=== PATIENT | male | born 1955 | race African-American/Black ===

== ENCOUNTER 2023-02-08 08:45 | Inpatient (IN) | payer SELFPAY ==
[2023-02-08] MEDS ORDERED: Ondansetron PF 4 MG/2 ML Vial ONE ×2 (09:08→13:36)
[2023-02-08] MEDS ORDERED: Ketorolac Tromethamine 30 MG/ML VIAL ONE (09:08)
[2023-02-08 09:17] LABS: Hematocrit 47.1 % (42.0-52.0); Hemoglobin 15.3 g/dL (14.0-18.0); Mean Corpuscular HGB CONC 32.5 g/dL (32.0-36.0); Mean Corpuscular Volume 95.5 fl (78.0-98.0); Mean Platelet Volume 8.6 fL (7.4-10.4); Platelet Count 385 10x3/uL (130-400); RBC Distribution Width 12.3 % (11.5-14.5); Red Blood Cell (RBC) Count 4.93 mill/uL (4.70-6.10); White Blood Cell (WBC) Count 3.9 10x3/uL (4.8-10.8)
[2023-02-08 09:24] LABS: Bacteria/HPF None Seen HPF (None Seen); Bilirubin Negative (Negative); Blood, Urine 1+ (Negative); CAUTI Indications for Culture Pelvic or flank pain; Clarity Turbid (Clear); Glucose, Urine (Dipstick) Normal (Negative); Ketone, Urine 10 mg/dL (Negative); Leukocyte Negative Leu/uL (Negative); Nitrite Negative (Negative); Protein, Urine (Dipstick) 50 mg/dL (Neg-Trace); RBC/HPF 0-3 HPF (0-3); Specific Gravity, Urine 1.027 (1.002-1.036); Squamous Epithelial 0-3 HPF (0-3); Urobilinogen Normal mg/dL (Less than 2); WBC/HPF 0-3 HPF (0-3)
[2023-02-08 09:26] LABS: Urine Culture Reflex No No
[2023-02-08 09:32] LABS: Delete Auto Diff?? YES; Manual Diff?? YES
[2023-02-08] MEDS ORDERED: Piperacillin/Tazobactam 4.5 GM VIAL ONE (09:42)
[2023-02-08] MEDS ORDERED: Sodium Chloride 0.9% 100 ML ONE (09:42)
[2023-02-08 09:43] LABS: ALT (SGPT) 16 U/L (8-55); AST (SGOT) 29 U/L (5-34); Albumin 4.6 g/dL (3.4-4.8); Alkaline Phosphatase 77 U/L (40-110); Anion Gap 21 mmol/L (10-20); BUN (Urea Nitrogen) 28 mg/dL (8.4-25.7); Bilirubin, Total 1.4 mg/dL (0.2-1.2); Calc. Creatinine Clearance 0 mL/min (70-130); Calcium 9.6 mg/dL (7.8-10.44); Carbon Dioxide 24 mmol/L (23-31); Chloride 103 mmol/L (98-107); Estimated GFR 55; Globulin 3.6 g/dL (2.4-3.5); Glucose 189 mg/dL (80-115); Lipase 200 U/L (8-78); Potassium 4.5 mmol/L (3.5-5.1); Protein, Total 8.2 g/dL (5.8-8.1); Sodium 143 mmol/L (136-145)
[2023-02-08 10:08] LABS: Anisocytosis MARKED = >30 cells HPF (0-5); Band 37 % (5-11); Burr Cells MODERATE= 6-15 cells HPF (0-1); CellaVision Operator ID LAB.CMB; Lymphocytes 16 % (21-51); Macrocytosis MODERATE=16-30 cells HPF (0-5); Monocytes 6 % (0-10); Neutrophil 41 % (42-75); Ovalocytes SLIGHT = 2-5 cells HPF (0-1); Platelet Adequacy Comment Platelets Normal; Poikilocytosis SLIGHT = 6-15 cells HPF (0-5); Reactive Lymphocytes 1 % (0-10); Total Cell Count 103
[2023-02-08 12:25] LABS: Lactic Acid 3.9 mmol/L (0.5-2.2)
[2023-02-08] MEDS ORDERED: Ipratropium/Albuterol 3 ML NEB NEB PRN (12:33)
[2023-02-08] MEDS ORDERED: TETANUS, DIPHTHERIA TOX,ADULT (TDVAX) 0.5 ML VIAL IM ONE (12:33)
[2023-02-08] MEDS ORDERED: Ondansetron PF 4 MG/2 ML Vial IVP PRN ×2 (12:33→14:56)
[2023-02-08] MEDS ORDERED: Morphine 2 MG/ML VIAL SLOW IVP PRN (12:33)
[2023-02-08] MEDS ORDERED: Sodium Chloride 0.9% 1,000 ML IV SCH ×2 (12:45→18:45)
[2023-02-08] MEDS ORDERED: Acetaminophen 500 MG TAB PO SCH ×2 (13:15→18:00)
[2023-02-08] MEDS ORDERED: fentaNYL 50 mcg/mL 1 mL Vial ONE (13:17)
[2023-02-08] MEDS ORDERED: fentaNYL PF 100 MCG/2 ML SYRINGE ONE (13:17)
[2023-02-08] MEDS ORDERED: SUGAMMADEX SODIUM 200 MG/2 ML VIAL ONE (13:22)
[2023-02-08] MEDS ORDERED: Dexamethasone 20 MG/5 ML VIAL ONE (13:36)
[2023-02-08] MEDS ORDERED: Rocuronium Bromide 10 MG/ML (10ML VIAL) ONE (13:36)
[2023-02-08] MEDS ORDERED: Succinylcholine 200 MG/10 ml SYRINGE FS ONE (13:36)
[2023-02-08] MEDS ORDERED: PROPOFOL 200 MG/20 ML VIAL ONE (13:36)
[2023-02-08] MEDS ORDERED: Iopamidol-370 76% 500 ML MDV (1 ML CHARGE) ONE (13:54)
[2023-02-08] MEDS ORDERED: diphenhydrAMINE 50 MG/ML VIAL IM PRN (14:56)
[2023-02-08] MEDS ORDERED: Naloxone HCl 0.4 mg/ml Vial IV PRN (14:56)
[2023-02-08] MEDS ORDERED: diphenhydrAMINE 50 MG/ML VIAL IVP PRN (14:56)
[2023-02-08] MEDS ORDERED: Ondansetron HCl/PF 4 MG/2 ML Vial IVP PRN (14:56)
[2023-02-08] MEDS ORDERED: HYDROmorphone 2 MG/ML VIAL SLOW IVP PRN (14:56)
[2023-02-08] MEDS ORDERED: HYDROmorphone 10 mg/100 ml CADD IVPB PRN (14:56)
[2023-02-08] MEDS ORDERED: diphenhydrAMINE 25 MG CAP PO PRN (14:56)
[2023-02-08] MEDS ORDERED: Promethazine HCl 25 MG/ML VIAL IM PRN (14:56)
[2023-02-08] MEDS ORDERED: Communication Order-Pharmacy FS SCH (15:00)
[2023-02-08 17:32] VITALS: BMI 21.8
[2023-02-08] MEDS: Piperacillin/Tazobactam 3.375 GM in Sodium Chloride 0.9% 100 ML IVPB SCH ×2 (17:47→21:25)
[2023-02-08] MEDS: D5 1/2 NS w/20 mEq KCL 1,000 ML IV SCH ×2 (17:47→23:57)
[2023-02-08] MEDS ORDERED: Piperacillin/Tazobactam 4.5 GM in Sodium Chloride 0.9% 100 ML IVPB SCH (18:00)
[2023-02-08] MEDS: Ketorolac Tromethamine 30 MG/ML VIAL IVP SCH (18:21)
[2023-02-08 18:47] LABS: Hematocrit 40.5 % (42.0-52.0); Hemoglobin 13.1 g/dL (14.0-18.0); Mean Corpuscular HGB CONC 32.3 g/dL (32.0-36.0); Mean Corpuscular Hemoglobin 31.4 pg (27.0-31.0); Mean Corpuscular Volume 97.1 fl (78.0-98.0); Mean Platelet Volume 8.6 fL (7.4-10.4); Platelet Count 291 10x3/uL (130-400); RBC Distribution Width 12.5 % (11.5-14.5); Red Blood Cell (RBC) Count 4.17 mill/uL (4.70-6.10); White Blood Cell (WBC) Count 5.7 10x3/uL (4.8-10.8)
[2023-02-08 18:48] LABS: Delete Auto Diff?? YES; Manual Diff?? YES
[2023-02-08 19:06] LABS: Lactic Acid 2.2 mmol/L (0.5-2.2)
[2023-02-08 19:09] LABS: Anion Gap 14 mmol/L (10-20); BUN (Urea Nitrogen) 32 mg/dL (8.4-25.7); Calc. Creatinine Clearance 57 mL/min (70-130); Calcium 8.3 mg/dL (7.8-10.44); Carbon Dioxide 22 mmol/L (23-31); Chloride 109 mmol/L (98-107); Estimated GFR 57; Glucose 147 mg/dL (80-115); Magnesium 1.6 mg/dL (1.6-2.6); Phosphorus 3.4 mg/dL (2.3-4.7); Potassium 4.3 mmol/L (3.5-5.1); Sodium 141 mmol/L (136-145)
[2023-02-08 19:38] LABS: Band 46 % (5-11); Burr Cells SLIGHT = 2-5 cells HPF (0-1); CellaVision Operator ID LAB.KB; Large Platelets 1.9 % (0-5); Lymphocytes 6 % (21-51); Monocytes 4 % (0-10); Neutrophil 45 % (42-75); Ovalocytes SLIGHT = 2-5 cells HPF (0-1); Platelet Adequacy Comment Platelets Normal; Polychromasia SLIGHT = 2-3 cells HPF (0-2); Reflex for Review?? YES; Smudge Cells 10.3 %; Total Cell Count 107
[2023-02-08] MEDS ORDERED: Famotidine/PF 20 mg/2ml Vial SLOW IVP SCH (21:00)
[2023-02-08] MEDS: Pantoprazole 40 MG VIAL IVP SCH (21:25)
[2023-02-09] MEDS: Ketorolac Tromethamine 30 MG/ML VIAL IVP SCH ×2 (00:14→05:24)
[2023-02-09] MEDS: Piperacillin/Tazobactam 3.375 GM in Sodium Chloride 0.9% 100 ML IVPB SCH ×3 (05:24→22:12)
[2023-02-09 07:51] LABS: Hematocrit 35.2 % (42.0-52.0); Hemoglobin 11.2 g/dL (14.0-18.0); Mean Corpuscular HGB CONC 31.8 g/dL (32.0-36.0); Mean Corpuscular Hemoglobin 30.6 pg (27.0-31.0); Mean Corpuscular Volume 96.2 fl (78.0-98.0); Mean Platelet Volume 9.4 fL (7.4-10.4); Platelet Count 250 10x3/uL (130-400); RBC Distribution Width 12.6 % (11.5-14.5); Red Blood Cell (RBC) Count 3.66 mill/uL (4.70-6.10); White Blood Cell (WBC) Count 6.7 10x3/uL (4.8-10.8)
[2023-02-09 07:58] LABS: Lactic Acid 1.7 mmol/L (0.5-2.2)
[2023-02-09 08:01] LABS: Delete Auto Diff?? YES; Manual Diff?? YES
[2023-02-09 08:14] LABS: ALT (SGPT) 28 U/L (8-55); AST (SGOT) 39 U/L (5-34); Albumin 3.3 g/dL (3.4-4.8); Alkaline Phosphatase 46 U/L (40-110); Anion Gap 13 mmol/L (10-20); BUN (Urea Nitrogen) 32 mg/dL (8.4-25.7); Bilirubin, Total 1.2 mg/dL (0.2-1.2); Calc. Creatinine Clearance 61 mL/min (70-130); Calcium 7.8 mg/dL (7.8-10.44); Carbon Dioxide 24 mmol/L (23-31); Chloride 110 mmol/L (98-107); Estimated GFR 61; Globulin 2.5 g/dL (2.4-3.5); Glucose 122 mg/dL (80-115); Magnesium 1.7 mg/dL (1.6-2.6); Phosphorus 2.5 mg/dL (2.3-4.7); Potassium 4.4 mmol/L (3.5-5.1); Protein, Total 5.8 g/dL (5.8-8.1); Sodium 143 mmol/L (136-145)
[2023-02-09 08:16] LABS: INR-International Normal Ratio 1.5; PTT 41.1 sec (22.9-36.1); Prothrombin Time 18.8 sec (12.0-14.7)
[2023-02-09] MEDS ORDERED: Magnesium 2 GM/50 ML(in water) 2 GM in Premix 1 BAG IVPB SCH (08:30)
[2023-02-09 08:46] LABS: Anisocytosis SLIGHT = 6-15 cells HPF (0-5); Band 22 % (5-11); Burr Cells SLIGHT = 2-5 cells HPF (0-1); CellaVision Operator ID lab.dlt; Lymphocytes 12 % (21-51); Monocytes 9 % (0-10); Neutrophil 58 % (42-75); Platelet Adequacy Comment Platelets Normal; Poikilocytosis SLIGHT = 6-15 cells HPF (0-5); Polychromasia SLIGHT = 2-3 cells HPF (0-2); Total Cell Count 104
[2023-02-09] MEDS ORDERED: FLU VACC QS2023(65UP)/MF59C/PF 60 MCG/0.5 ML SYRINGE IM ONE (09:00)
[2023-02-09] MEDS: Pantoprazole 40 MG VIAL IVP SCH ×2 (09:17→22:12)
[2023-02-09] MEDS: D5 1/2 NS w/20 mEq KCL 1,000 ML IV SCH ×4 (09:24→22:11)
[2023-02-09 13:20] LABS: Hematocrit 34.3 % (42.0-52.0); Mean Corpuscular HGB CONC 32.1 g/dL (32.0-36.0); Mean Corpuscular Hemoglobin 31.3 pg (27.0-31.0); Mean Corpuscular Volume 97.7 fl (78.0-98.0); Mean Platelet Volume 9.1 fL (7.4-10.4); Platelet Count 236 10x3/uL (130-400); RBC Distribution Width 12.7 % (11.5-14.5); Red Blood Cell (RBC) Count 3.51 mill/uL (4.70-6.10); White Blood Cell (WBC) Count 7.3 10x3/uL (4.8-10.8)
[2023-02-09 13:22] LABS: Delete Auto Diff?? YES; Manual Diff?? YES
[2023-02-09 13:36] LABS: ALT (SGPT) 26 U/L (8-55); AST (SGOT) 33 U/L (5-34); Albumin 3.5 g/dL (3.4-4.8); Alkaline Phosphatase 44 U/L (40-110); Anion Gap 7 mmol/L (10-20); BUN (Urea Nitrogen) 28 mg/dL (8.4-25.7); Bilirubin, Total 1.1 mg/dL (0.2-1.2); Calc. Creatinine Clearance 58 mL/min (70-130); Calcium 8.4 mg/dL (7.8-10.44); Carbon Dioxide 27 mmol/L (23-31); Chloride 111 mmol/L (98-107); Estimated GFR 58; Globulin 2.4 g/dL (2.4-3.5); Glucose 135 mg/dL (80-115); Potassium 4.8 mmol/L (3.5-5.1); Protein, Total 5.9 g/dL (5.8-8.1); Sodium 140 mmol/L (136-145)
[2023-02-09 13:40] LABS: Troponin I 0.012 ng/mL (< 0.028)
[2023-02-09 13:52] LABS: Band 16 % (5-11); Burr Cells SLIGHT = 2-5 cells HPF (0-1); CellaVision Operator ID LAB.KB; Lymphocytes 16 % (21-51); Monocytes 4 % (0-10); Neutrophil 64 % (42-75); Ovalocytes SLIGHT = 2-5 cells HPF (0-1); Platelet Adequacy Comment Platelets Normal; Poikilocytosis SLIGHT = 6-15 cells HPF (0-5); Reactive Lymphocytes 1 % (0-10); Smudge Cells 16.8 %; Total Cell Count 107; Vacuoles SLIGHT
[2023-02-10] MEDS: D5 1/2 NS w/20 mEq KCL 1,000 ML IV SCH ×2 (05:05→14:30)
[2023-02-10] MEDS: Piperacillin/Tazobactam 3.375 GM in Sodium Chloride 0.9% 100 ML IVPB SCH ×3 (05:05→21:34)
[2023-02-10 06:13] LABS: Hematocrit 33.1 % (42.0-52.0); Hemoglobin 10.7 g/dL (14.0-18.0); Mean Corpuscular HGB CONC 32.3 g/dL (32.0-36.0); Mean Corpuscular Hemoglobin 30.8 pg (27.0-31.0); Mean Corpuscular Volume 95.4 fl (78.0-98.0); Mean Platelet Volume 9.3 fL (7.4-10.4); Platelet Count 251 10x3/uL (130-400); RBC Distribution Width 12.7 % (11.5-14.5); Red Blood Cell (RBC) Count 3.47 mill/uL (4.70-6.10); White Blood Cell (WBC) Count 6.8 10x3/uL (4.8-10.8)
[2023-02-10 06:16] LABS: Delete Auto Diff?? YES; Manual Diff?? YES
[2023-02-10 06:39] LABS: Anion Gap 10 mmol/L (10-20); BUN (Urea Nitrogen) 19 mg/dL (8.4-25.7); Calc. Creatinine Clearance 77 mL/min (70-130); Calcium 8.1 mg/dL (7.8-10.44); Carbon Dioxide 23 mmol/L (23-31); Chloride 110 mmol/L (98-107); Estimated GFR 82; Glucose 129 mg/dL (80-115); Potassium 4.1 mmol/L (3.5-5.1); Sodium 139 mmol/L (136-145)
[2023-02-10 06:41] LABS: Band 5 % (5-11); CellaVision Operator ID lab.abc; Eosinophils 1 % (0-10); Lymphocytes 6 % (21-51); Monocytes 1 % (0-10); Neutrophil 85 % (42-75); Platelet Adequacy Comment Platelets Normal; RBC Morphology Within Normal Limits; Total Cell Count 100
[2023-02-10] MEDS: Pantoprazole 40 MG VIAL IVP SCH ×2 (08:41→21:34)
[2023-02-11] MEDS: Piperacillin/Tazobactam 3.375 GM in Sodium Chloride 0.9% 100 ML IVPB SCH ×3 (05:54→21:59)
[2023-02-11] MEDS: D5 1/2 NS w/20 mEq KCL 1,000 ML IV SCH ×3 (05:54→20:04)
[2023-02-11] MEDS: Pantoprazole 40 MG VIAL IVP SCH ×2 (09:06→21:59)
[2023-02-11] MEDS ORDERED: Acetaminophen 325 MG TAB PO SCH (10:45)
[2023-02-11] MEDS ORDERED: Morphine 2 MG/ML VIAL SLOW IVP PRN (10:46)
[2023-02-11] MEDS: Acetaminophen 500 MG TAB PO SCH ×2 (11:34→17:12)
[2023-02-11] MEDS: traMADol HCl 50 MG TAB PO SCH ×2 (11:34→17:12)
[2023-02-12] MEDS: traMADol HCl 50 MG TAB PO SCH ×4 (00:44→17:00)
[2023-02-12] MEDS: Acetaminophen 500 MG TAB PO SCH ×4 (00:45→17:00)
[2023-02-12] MEDS: Piperacillin/Tazobactam 3.375 GM in Sodium Chloride 0.9% 100 ML IVPB SCH ×3 (05:31→21:30)
[2023-02-12] MEDS: Pantoprazole 40 MG VIAL IVP SCH ×2 (08:36→21:30)
[2023-02-12] MEDS: traMADol HCl 50 MG TAB PO PRN ×2 (08:37→14:23)
[2023-02-13] MEDS: Acetaminophen 500 MG TAB PO SCH ×5 (00:05→23:42)
[2023-02-13] MEDS: traMADol HCl 50 MG TAB PO SCH ×5 (00:05→23:43)
[2023-02-13] MEDS: Piperacillin/Tazobactam 3.375 GM in Sodium Chloride 0.9% 100 ML IVPB SCH ×3 (06:19→21:27)
[2023-02-13] MEDS: Pantoprazole 40 MG VIAL IVP SCH ×2 (08:40→20:16)
[2023-02-14] MEDS: Acetaminophen 500 MG TAB PO SCH ×4 (06:13→23:08)
[2023-02-14] MEDS: traMADol HCl 50 MG TAB PO SCH ×4 (06:13→23:08)
[2023-02-14] MEDS: Pantoprazole 40 MG VIAL IVP SCH ×2 (09:04→19:55)
[2023-02-15] MEDS: traMADol HCl 50 MG TAB PO SCH ×4 (05:26→23:50)
[2023-02-15] MEDS: Acetaminophen 500 MG TAB PO SCH ×4 (05:27→23:50)
[2023-02-15] MEDS: Pantoprazole 40 MG VIAL IVP SCH ×2 (08:33→19:38)
[2023-02-16] MEDS: Acetaminophen 500 MG TAB PO SCH ×3 (05:42→19:41)
[2023-02-16] MEDS: traMADol HCl 50 MG TAB PO SCH ×3 (05:42→19:41)
[2023-02-16] MEDS: Senokot S 8.6-50 MG TAB PO SCH (20:16)
[2023-02-17] MEDS: Acetaminophen 500 MG TAB PO SCH ×4 (00:56→18:54)
[2023-02-17] MEDS: traMADol HCl 50 MG TAB PO SCH ×4 (00:57→18:54)
[2023-02-17] MEDS: Polyethylene Glycol 3350 17 GM Packet PO SCH (08:57)
[2023-02-17] MEDS: Senokot S 8.6-50 MG TAB PO SCH ×2 (08:57→22:27)
[2023-02-18] MEDS: Acetaminophen 500 MG TAB PO SCH ×4 (00:26→18:53)
[2023-02-18] MEDS: traMADol HCl 50 MG TAB PO SCH ×3 (00:27→16:50)
[2023-02-18] MEDS: Senokot S 8.6-50 MG TAB PO SCH (09:57)
[2023-02-18] MEDS: Polyethylene Glycol 3350 17 GM Packet PO SCH (09:57)
[2023-02-19] MEDS: Acetaminophen 500 MG TAB PO SCH ×2 (00:13→06:14)
[2023-02-19 05:42] LABS: Hematocrit 33.2 % (42.0-52.0); Hemoglobin 10.7 g/dL (14.0-18.0); Platelet Count 720 10x3/uL (130-400)
[2023-02-19] MEDS: Polyethylene Glycol 3350 17 GM Packet PO SCH (09:52)
[2023-02-19 13:47] VITALS: BP 103/64; TEMP 97.5
== END 2023-02-19 17:23 | disposition home or self-care (01) | DRG 853 ==
LOC: ERS 08:45 → SDC 13:01 → SURG A 17:00
PROVIDERS: ADMIT Specialist; ATTEND Specialist
PROC: 0DU907Z Supplement Duodenum with Autologous Tissue Substitute, Open Approach (ICD-10-PCS; principal; 2023-02-08)
PROC: 0DU707Z Supplement Stomach, Pylorus with Autologous Tissue Substitute, Open Approach (ICD-10-PCS; 2023-02-08)
PROC: 30233J1 Transfusion of Nonautologous Serum Albumin into Peripheral Vein, Percutaneous Approach (ICD-10-PCS; 2023-02-08)
PROC: 3E03329 Introduction of Other Anti-infective into Peripheral Vein, Percutaneous Approach (ICD-10-PCS; 2023-02-08)
DX: A41.9 Sepsis, unspecified organism (principal); K26.5 Chronic or unspecified duodenal ulcer with perforation; R18.8 Other ascites; Z59.00 Homelessness unspecified; Z90.49 Acquired absence of other specified parts of digestive tract; Z79.899 Other long term (current) drug therapy
CPT/HCPCS: 36415; 71045; 71260; 74177; 74240; 80048; 80053; 81001; 82533; 82565; 83605; 83690; 83735; 83880; 84100; 84484; 85014; 85018; 85025; 85049; 85060; 85610; 85730; 87040; 93005; 96361; 96365; 96375; A4314; C9113; J1100; J1650; J1885; J2405; J2543; J2704; J3010; J3475; J3480; J3490; J7050; P9045; Q9967

== ENCOUNTER 2024-03-23 16:36 | Emergency (ER) | payer OTHER, SELFPAY ==
[2024-03-23 17:27] LABS: #Basophils Less than 0.03 10x3/uL (0.0-0.2); #Eosinophils Less than 0.03 10x3/uL (0.0-0.7); %Basophils 0.3 % (0.0-1.0); %Eosinophils 0.2 % (0.0-10.0); %Lymphocytes 8.5 % (21.0-51.0); %Monocytes 2.9 % (0.0-10.0); %Neutrophils 87.9 % (42.0-75.0); Hematocrit 35.3 % (42.0-52.0); Hemoglobin 11.1 g/dL (14.0-18.0); Mean Corpuscular HGB CONC 31.4 g/dL (32.0-36.0); Mean Corpuscular Hemoglobin 29.7 pg (27.0-31.0); Mean Corpuscular Volume 94.4 fL (78.0-98.0); Mean Platelet Volume 8.9 fL (7.4-10.4); Platelet Count 315 10x3/uL (130-400); RBC Distribution Width 12.4 % (11.5-14.5); Red Blood Cell (RBC) Count 3.74 mill/uL (4.70-6.10)
[2024-03-23 17:42] LABS: ALT (SGPT) 18 U/L (8-55); AST (SGOT) 34 U/L (5-34); Albumin 3.8 g/dL (3.4-4.8); Alkaline Phosphatase 94 U/L (40-110); Anion Gap 13 mmol/L (10-20); BUN (Urea Nitrogen) 14 mg/dL (8.4-25.7); Bilirubin, Total 0.6 mg/dL (0.2-1.2); Calc. Creatinine Clearance 0 mL/min (70-130); Calcium 9.1 mg/dL (7.8-10.44); Carbon Dioxide 23 mmol/L (23-31); Chloride 105 mmol/L (98-107); Estimated GFR 94; Globulin 4.1 g/dL (2.4-3.5); Glucose 149 mg/dL (80-115); Potassium 3.9 mmol/L (3.5-5.1); Protein, Total 7.9 g/dL (5.8-8.1); Sodium 137 mmol/L (136-145)
[2024-03-23 17:47] LABS: Troponin I 0.018 ng/mL (< 0.028)
[2024-03-23] MEDS ORDERED: Ondansetron ODT 4 MG TAB ONE (19:15)
[2024-03-23] MEDS ORDERED: Lidocaine 1% MPF 2 ML VIAL ONE (19:20)
[2024-03-23] MEDS ORDERED: cefTRIAXone (ROCEPHIN) 1 GM VIAL ONE (19:20)
== END 2024-03-23 19:58 | disposition home or self-care (01) ==
LOC: ERS 16:36
DX: J18.9 Pneumonia, unspecified organism (principal); R11.2 Nausea with vomiting, unspecified; Z55.6 Problems related to health literacy
CPT/HCPCS: 71045; 80053; 83690; 84484; 85025; 87428; 93005; J0696; Q0162; 36415

== ENCOUNTER 2024-09-29 16:37 | Inpatient (IN) | payer MEDICARE, MEDICAID ==
[2024-09-29] MEDS ORDERED: Ondansetron PF 4 MG/2 ML Vial ONE (17:19)
[2024-09-29 17:59] LABS: Bacteria/HPF None Seen HPF (None Seen); Bilirubin Negative (Negative); Blood, Urine 1+ (Negative); CAUTI Indications for Culture Pelvic or flank pain; Clarity Clear (Clear); Glucose, Urine (Dipstick) Greater than 1000 mg/dL (Negative); Ketone, Urine Negative (Negative); Leukocyte Negative Leu/uL (Negative); Nitrite Negative (Negative); Protein, Urine (Dipstick) Negative (Neg-Trace); Specific Gravity, Urine 1.019 (1.002-1.036); Squamous Epithelial None Seen HPF (0-3); pH, Urine 7.5 (5.0-9.0)
[2024-09-29 18:39] LABS: Urine Culture Reflex Yes Yes
[2024-09-29] MEDS ORDERED: fentaNYL 50 mcg/mL 1 mL Vial ONE (19:01)
[2024-09-29 21:17] LABS: #Basophils Less than 0.03 10x3/uL (0.0-0.2); #Eosinophils 0.04 10x3/uL (0.0-0.7); #Monocytes 0.15 10x3/uL (0.11-0.59); #Neutrophils 6.58 10x3/uL (1.40-6.50); %Basophils 0.3 % (0.0-1.0); %Eosinophils 0.5 % (0.0-10.0); %Lymphocytes 10.4 % (21.0-51.0); %Neutrophils 86.4 % (42.0-75.0); Hematocrit 34.1 % (42.0-52.0); Hemoglobin 10.7 g/dL (14.0-18.0); Mean Corpuscular HGB CONC 31.4 g/dL (32.0-36.0); Mean Corpuscular Hemoglobin 29.4 pg (27.0-31.0); Mean Corpuscular Volume 93.7 fL (78.0-98.0); Mean Platelet Volume 9.6 fL (7.4-10.4); Platelet Count 195 10x3/uL (130-400); RBC Distribution Width 15.3 % (11.5-14.5); Red Blood Cell (RBC) Count 3.64 mill/uL (4.70-6.10); White Blood Cell (WBC) Count 7.61 10x3/uL (4.8-10.8)
[2024-09-29 21:28] LABS: INR-International Normal Ratio 1.2; Prothrombin Time 15.5 sec (12.0-14.7)
[2024-09-29 21:29] LABS: PTT 26.6 sec (22.9-36.1)
[2024-09-29 21:45] LABS: ALT (SGPT) 17 U/L (Less than 45); AST (SGOT) 35 U/L (11-34); Albumin 3.6 g/dL (3.1-4.5); Alkaline Phosphatase 91 U/L (40-110); Anion Gap 16 mmol/L (10-20); BUN (Urea Nitrogen) 19 mg/dL (8.4-25.7); Calc. Creatinine Clearance 0 mL/min (70-130); Calcium 9.6 mg/dL (7.8-10.44); Carbon Dioxide 26 mmol/L (23-31); Chloride 102 mmol/L (98-107); Estimated GFR 87; Globulin 4.5 g/dL (2.4-3.5); Glucose 136 mg/dL (80-115); Lipase 13 U/L (8-78); Potassium 4.4 mmol/L (3.5-5.1); Protein, Total 8.1 g/dL (5.8-8.1); Sodium 140 mmol/L (136-145)
[2024-09-29] MEDS ORDERED: Enoxaparin 80 MG (0.8 mL) SYRINGE ONE (23:10)
[2024-09-29] MEDS ORDERED: Acetaminophen 325 MG TAB PO PRN (23:19)
[2024-09-29] MEDS ORDERED: Ondansetron PF 4 MG/2 ML Vial IVP PRN (23:19)
[2024-09-29] MEDS ORDERED: fentaNYL 50 mcg/mL 1 mL Vial SLOW IVP PRN (23:46)
[2024-09-30 00:26] VITALS: BMI 20.9
[2024-09-30] MEDS ORDERED: Enoxaparin 80 MG (0.8 mL) SYRINGE SC SCH (01:00)
[2024-09-30 02:25] LABS: Lactic Acid 1.66 mmol/L (0.50-2.20)
[2024-09-30 04:14] LABS: Anion Gap 17 mmol/L (10-20); BUN (Urea Nitrogen) 20 mg/dL (8.4-25.7); Calc. Creatinine Clearance 82 mL/min (70-130); Calcium 9.9 mg/dL (7.8-10.44); Carbon Dioxide 23 mmol/L (23-31); Chloride 103 mmol/L (98-107); Estimated GFR 93; Glucose 107 mg/dL (80-115); Potassium 4.8 mmol/L (3.5-5.1); Sodium 138 mmol/L (136-145)
[2024-09-30] MEDS: Bisacodyl 10 MG SUPP PR SCH ×2 (06:31→12:51)
[2024-09-30 06:46] LABS: #Basophils 0.04 10x3/uL (0.0-0.2); #Eosinophils Less than 0.03 10x3/uL (0.0-0.7); #Monocytes 0.21 10x3/uL (0.11-0.59); #Neutrophils 6.23 10x3/uL (1.40-6.50); %Basophils 0.6 % (0.0-1.0); %Lymphocytes 10.2 % (21.0-51.0); %Monocytes 2.9 % (0.0-10.0); %Neutrophils 85.9 % (42.0-75.0); Hematocrit 42.3 % (42.0-52.0); Hemoglobin 12.8 g/dL (14.0-18.0); Mean Corpuscular HGB CONC 30.3 g/dL (32.0-36.0); Mean Corpuscular Hemoglobin 29.7 pg (27.0-31.0); Mean Corpuscular Volume 98.1 fL (78.0-98.0); Mean Platelet Volume 9.3 fL (7.4-10.4); Platelet Count 359 10x3/uL (130-400); RBC Distribution Width 15.5 % (11.5-14.5); Red Blood Cell (RBC) Count 4.31 mill/uL (4.70-6.10); White Blood Cell (WBC) Count 7.25 10x3/uL (4.8-10.8)
[2024-09-30] MEDS: Enoxaparin 80 MG (0.8 mL) SYRINGE SC SCH (12:51)
[2024-10-01 04:12] LABS: #Basophils 0.04 10x3/uL (0.0-0.2); #Eosinophils Less than 0.03 10x3/uL (0.0-0.7); #Monocytes 0.38 10x3/uL (0.11-0.59); #Neutrophils 4.31 10x3/uL (1.40-6.50); %Basophils 0.7 % (0.0-1.0); %Eosinophils 0.2 % (0.0-10.0); %Lymphocytes 16.4 % (21.0-51.0); %Monocytes 6.7 % (0.0-10.0); %Neutrophils 75.8 % (42.0-75.0); Hematocrit 42.2 % (42.0-52.0); Hemoglobin 12.8 g/dL (14.0-18.0); Mean Corpuscular HGB CONC 30.3 g/dL (32.0-36.0); Mean Corpuscular Hemoglobin 29.2 pg (27.0-31.0); Mean Corpuscular Volume 96.1 fL (78.0-98.0); Mean Platelet Volume 8.5 fL (7.4-10.4); Platelet Count 350 10x3/uL (130-400); RBC Distribution Width 15.6 % (11.5-14.5); Red Blood Cell (RBC) Count 4.39 mill/uL (4.70-6.10); White Blood Cell (WBC) Count 5.68 10x3/uL (4.8-10.8)
[2024-10-01 04:40] LABS: Anion Gap 17 mmol/L (10-20); BUN (Urea Nitrogen) 22 mg/dL (8.4-25.7); Calc. Creatinine Clearance 74 mL/min (70-130); Calcium 9.7 mg/dL (7.8-10.44); Carbon Dioxide 26 mmol/L (23-31); Chloride 101 mmol/L (98-107); Estimated GFR 86; Glucose 101 mg/dL (80-115); Potassium 4.7 mmol/L (3.5-5.1); Sodium 139 mmol/L (136-145)
[2024-10-01] MEDS: Atorvastatin Calcium 20 MG TAB PO SCH (21:39)
[2024-10-02 05:14] LABS: Anion Gap 14 mmol/L (10-20); BUN (Urea Nitrogen) 22 mg/dL (8.4-25.7); Calc. Creatinine Clearance 84 mL/min (70-130); Calcium 8.8 mg/dL (7.8-10.44); Carbon Dioxide 29 mmol/L (23-31); Chloride 101 mmol/L (98-107); Estimated GFR 94; Glucose 80 mg/dL (80-115); Potassium 3.8 mmol/L (3.5-5.1); Sodium 140 mmol/L (136-145)
[2024-10-02 06:23] LABS: Hematocrit 33.8 % (42.0-52.0); Hemoglobin 10.8 g/dL (14.0-18.0); Mean Corpuscular Hemoglobin 30.1 pg (27.0-31.0); Mean Corpuscular Volume 94.2 fL (78.0-98.0); Mean Platelet Volume 9.2 fL (7.4-10.4); Platelet Count 305 10x3/uL (130-400); RBC Distribution Width 15.5 % (11.5-14.5); Red Blood Cell (RBC) Count 3.59 mill/uL (4.70-6.10); White Blood Cell (WBC) Count 4.89 10x3/uL (4.8-10.8)
[2024-10-02 06:30] LABS: #Basophils 0.04 10x3/uL (0.0-0.2); #Eosinophils 0.12 10x3/uL (0.0-0.7); #Monocytes 0.37 10x3/uL (0.11-0.59); %Basophils 0.8 % (0.0-1.0); %Eosinophils 2.3 % (0.0-10.0); %Lymphocytes 34.6 % (21.0-51.0); %Monocytes 7.2 % (0.0-10.0); %Neutrophils 54.9 % (42.0-75.0)
[2024-10-02] MEDS: Aspirin Chewable 81 MG TAB PO SCH (10:50)
[2024-10-02] MEDS: Multivitamin W/ Minerals 1 TAB PO SCH (10:50)
[2024-10-02] MEDS: Midodrine HCl 5 MG TAB PO SCH (10:50)
[2024-10-02] MEDS: Furosemide 20 MG TAB PO SCH (10:50)
[2024-10-02] MEDS: Dapagliflozin Propanediol 10 MG TAB PO SCH (10:50)
[2024-10-02] MEDS: Pantoprazole 40 MG DR.TAB PO SCH (10:51)
[2024-10-02] MEDS: Carvedilol 3.125 MG TAB PO SCH (18:46)
[2024-10-02] MEDS: Apixaban 5 MG TAB PO SCH (21:30)
[2024-10-03 04:40] VITALS: TEMP 97.4
[2024-10-03] MEDS: Spironolactone 25 MG TAB PO SCH (09:27)
[2024-10-03] MEDS: Polyethylene Glycol 3350 17 GM Packet PO PRN (10:47)
[2024-10-03 14:27] VITALS: BP 95/65
== END 2024-10-03 15:40 | DRG 389 ==
LOC: ERS 16:37 → PCU 22:15
PROVIDERS: ADMIT Internal Medicine; ATTEND Internal Medicine
DX: K56.600 Partial intestinal obstruction, unspecified as to cause (principal); I42.9 Cardiomyopathy, unspecified; I50.22 Chronic systolic (congestive) heart failure; I11.0 Hypertensive heart disease with heart failure; N18.9 Chronic kidney disease, unspecified; N40.0 Benign prostatic hyperplasia without lower urinary tract symptoms; I25.10 Atherosclerotic heart disease of native coronary artery without angina pectoris; D64.9 Anemia, unspecified; K59.00 Constipation, unspecified; R33.9 Retention of urine, unspecified; E78.5 Hyperlipidemia, unspecified; Z98.890 Other specified postprocedural states; Z86.711 Personal history of pulmonary embolism; Z79.01 Long term (current) use of anticoagulants; Z90.49 Acquired absence of other specified parts of digestive tract; Z83.3 Family history of diabetes mellitus; Z79.899 Other long term (current) drug therapy; Z79.82 Long term (current) use of aspirin
CPT/HCPCS: 36415; 43752; 74018; 74177; 80048; 80053; 81001; 83605; 83690; 83880; 84484; 85025; 85610; 85730; 86850; 86900; 86901; 87040; 87086; 93005; 96372; 96374; 96375; 97139; J1650; J2405; J3010

== ENCOUNTER 2024-12-06 21:35 | Emergency (ER) | payer MEDICARE, OTHER | END 2024-12-06 23:50 | LOC: ERS 21:35 | DX: Z45.2 Encounter for adjustment and management of vascular access device (principal); I13.0 Hypertensive heart and chronic kidney disease with heart failure and stage 1 through stage 4 chronic kidney disease, or unspecified chronic kidney disease; I50.9 Heart failure, unspecified; N18.9 Chronic kidney disease, unspecified; I25.10 Atherosclerotic heart disease of native coronary artery without angina pectoris; D64.9 Anemia, unspecified; I42.9 Cardiomyopathy, unspecified; N40.0 Benign prostatic hyperplasia without lower urinary tract symptoms; E78.5 Hyperlipidemia, unspecified; Z79.01 Long term (current) use of anticoagulants; Z79.899 Other long term (current) drug therapy; Z79.82 Long term (current) use of aspirin | CPT/HCPCS: 99283 ==